=== PATIENT | male | born 1945 | race Caucasian/White ===

== ENCOUNTER 2025-10-05 09:43 | Outpatient (CLI) | payer MEDICARE, SELFPAY ==
--- NOTE | 2025-10-05 09:30 | RT.EKG_ITS ---
APPROVED REPORT Exam: Resting ECG Reason for Exam: afib Patient Location: O HR:152 bpm ECG Measurements Heart Rate 152 AXIS MO [id number] P [id number] QRSd 104 QRS -55 QT 293 T 23 QTc 466 Conclusion Atrial fibrillation with rapid V-rate...A-rate 374 Left axis Low voltage
== END 2025-10-05 09:44 | disposition home or self-care (01) ==
LOC: DI.CM 09:43
PROVIDERS: PCP Nurse Practitioner Family; Visit Provider Nurse Practitioner Family
DX: I48.91 Unspecified atrial fibrillation (principal)
CPT/HCPCS: 93010

== ENCOUNTER 2025-10-05 10:06 | Emergency (ER) | payer MEDICARE, SELFPAY ==
[2025-10-05] VITALS (48 sets, daily range): BP systolic 101–168; BP diastolic 66–116; PULSE 65–155; RESP 11–30; TEMP 36.6; O2SAT 89–97
--- NOTE | 2025-10-05 10:00 | RT.EKG_ITS ---
APPROVED REPORT Exam: Resting ECG Reason for Exam: rapid heart rate Patient Location: E HR:157 bpm ECG Measurements Heart Rate 157 AXIS VT [id number] P [id number] QRSd 82 QRS -55 QT 309 T [id number] QTc 497 Conclusion Atrial fibrillation with rapid V-rate...A-rate 395 Inferior infarct, old...Q >35mS, II III aVF No STEMI
--- NOTE | 2025-10-05 10:14 | W.ED.GENAD ---
Discharge Plan Disposition Patient Disposition: Home Condition: Stable Discharge Details Clinical Impression: Atrial fibrillation with rapid ventricular response Primary Care Provider: Kinjal Tavera ED Provider: Rachel Rae Home Meds and New Rx's Prescriptions: New diltiazem HCl [Cartia XT] 120 mg capsule,extended release 24hr 120 mg PO DAILY 30 Days Qty: 30 3RF Rx Instructions: Take one capsule by mouth daily furosemide [Lasix] 20 mg tablet 20 mg PO DAILY Qty: 30 0RF Rx Instructions: Take one tablet by mouth daily in am Continued trazodone 50 mg tablet 50 mg PO DAILY atorvastatin [Lipitor] 10 mg tablet 10 mg PO DAILY tamsulosin 0.4 mg capsule 0.4 mg PO BID mineral oil Oil 1 applic miscellaneous HS ascorbate calcium (vitamin C) 500 mg tablet 1 g PO DAILY losartan 25 mg tablet 25 mg PO BID omeprazole 20 mg capsule,delayed release(DR/EC) 20 mg PO DAILY betamethasone dipropionate 0.05 % ointment 1 applic topical PRN B-complex with vitamin C Capsule 1 cap PO DAILY magnesium 200 mg tablet 200 mg PO DAILY omega-3 fatty acids 1,250 mg capsule 1,250 mg PO BID cholecalciferol (vitamin D3) 75 mcg (3,000 unit) tablet 75 mcg PO DAILY potassium chloride [K-Tab] 20 mEq tablet extended release 20 meq PO BID Eliquis 5 mg tablet 5 mg PO BID Discharge Instructions Instructions: Atrial Fibrillation (DC) Additional Instructions: Please take the Diltiazem daily as prescribed. Please follow up with Cardiology within the next 2-3 weeks if possible, otherwise get in with your PCP. Follow up with primary care provider in 3-5 days. Return to ED sooner if any worsening or concerns. I did speak with Hailee Abraham with [facility] cardiology she recommended a low-dose diuretic such as Lasix or furosemide which was sent to the pharmacy on file. He will take this once in the morning. It will not cause you to have increased urination. You are placed on a care management list for urgent follow-up with PCP and a cardiology referral was also placed for you. Please call on Tuesday in order to get a close follow-up. Stand Alone Forms: Portal Information Referrals: Bryce Bella [ NON-[facility] STAFF PHYSICIAN, Medicine] - 3 days Referral Note: Close Follow up- ER follow up Call for appt Tuesday Clinical Impression: Atrial fibrillation with rapid ventricular response Asia Peguero MD [ [facility] STAFF PHYSICIAN, Cardiology] - 2 weeks Referral Note: A-fib RVR ER follow up Clinical Impression: Atrial fibrillation with rapid ventricular response Discharge Data Discharge Date/Time-TO BE ENTERED AT DEPARTURE: 10/05/25 14:28 HPI General Mode of arrival: ambulatory. Date/Time Provider Initiated Documentation: 10/05/25 10:10. Limitations to Documentation: no limitations. Information obtained by: patient, RN/MD, RN notes reviewed and old records reviewed. HPI Narrative: 80-year-old male presents to the ER with a chief complaint of shortness of breath worse for the last 3 days and productive cough for the last 3 weeks. He presented to urgent care today and was referred here for further evaluation and treatment. He was found to be in atrial fibrillation with RVR at a rate of 154. He does have a history of atrial fibrillation and a history of an ablation approximately 2 years ago. He is from out of town previously lived in [place]. He does take losartan and apixaban which he states that he did take this morning. He denies any chest pain, nausea vomiting diarrhea or any other associated symptoms. He denies any fever. He does have questionable 1+ pitting edema noted to his lower extremities. Lungs are clear to auscultation. Upon initial presentation he is hypertensive and tachycardic with a rate of 153 blood pressure 161/106. Related Data Home Medications Medication Instructions Recorded Confirmed B-complex with vitamin C 1 cap PO DAILY 10/05/25 10/05/25 apixaban 5 mg tablet (Eliquis) 5 mg PO BID 10/05/25 10/05/25 ascorbate calcium (vitamin C) 500 1 g PO DAILY 10/05/25 10/05/25 mg tablet atorvastatin 10 mg tablet (Lipitor) 10 mg PO DAILY 10/05/25 10/05/25 betamethasone dipropionate 0.05 % 1 applic topical PRN 10/05/25 10/05/25 topical ointment cholecalciferol (vitamin D3) 75 75 mcg PO DAILY 10/05/25 10/05/25 mcg (3,000 unit) tablet diltiazem HCl 120 mg 120 mg PO DAILY Atrial 10/05/25 capsule,extended release 24 hr Fibrillation 30 days #30 caps (Cartia XT) furosemide 20 mg tablet (Lasix) 20 mg PO DAILY Fluid retention #30 10/05/25 tabs losartan 25 mg tablet 25 mg PO BID 10/05/25 10/05/25 magnesium 200 mg tablet 200 mg PO DAILY 10/05/25 10/05/25 mineral oil 1 applic miscellaneous HS 10/05/25 10/05/25 omega-3 fatty acids 1,250 mg 1,250 mg PO BID 10/05/25 10/05/25 capsule omeprazole 20 mg capsule,delayed 20 mg PO DAILY 10/05/25 10/05/25 release potassium chloride 20 mEq 20 meq PO BID 10/05/25 10/05/25 tablet,extended release (K-Tab) tamsulosin 0.4 mg capsule 0.4 mg PO BID 10/05/25 10/05/25 trazodone 50 mg tablet 50 mg PO DAILY 10/05/25 10/05/25 Previous Rx's Medication Instructions Recorded diltiazem HCl 120 mg 120 mg PO DAILY Atrial 10/05/25 capsule,extended release 24 hr Fibrillation 30 days #30 caps (Cartia XT) furosemide 20 mg tablet (Lasix) 20 mg PO DAILY Fluid retention #30 10/05/25 tabs Allergies Allergy/AdvReac Type Severity Reaction Status Date / Time No Known Allergies Allergy Verified 10/05/25 10:16 General Stated Complaint: Arrhythmia KARY: 2 Review of Systems All systems reviewed & are unremarkable except as noted in HPI and below Cardiovascular Cardiovascular: Reports rapid heart rate, Reports dyspnea and Reports orthopnea Respiratory Respiratory: Reports change in phlegm color, Reports chest congestion, Reports cough, Reports excessive phlegm production and Reports dyspnea Gastrointestinal Gastrointestinal: Denies diarrhea, Denies nausea and Denies vomiting Exam Narrative Exam Narrative: Constitutional: Alert and oriented x3. Appears stated age. Normal body habitus. Head: Normocephalic, no trauma. Eyes: Pupils PERRL, Red reflex noted, EOM's intact. Eyelids symmetrical without lesions, discharge, or swelling. ENT: Bilateral TM's WNL, External ear normal to inspection, no mastoid TTP, swelling, or erythema, Nasal turbinates WNL, no nasal discharge. Normal dentition, Posterior pharynx WNL, no exudate. Chest: Irregular rhythm, tachycardic, Normal S1, S2, distal pulses intact. Resp: Lungs clear to auscultation bilaterally, no wheezes, rales, or rhonchi. Abdomen: Soft, non-distended, Normoactive bowel sounds all 4 quads. Musculoskeletal: Normal gait, Moves all 4 extremities without difficulty. Skin: No suspicious rashes or lesions. Capillary refill less than 2 sec. Neurologic: Cranial nerves II-XII intact. Alert and oriented x 3. Motor: No deficits noted. Sensory: Intact bilaterally all 4 extremities. Hematologic/Lymphatic: No ecchymosis, no lymphadenopathy. Course Vital Signs Vital signs: Vital Signs Temperature 36.6 C 10/05/25 10:09 Pulse 149 H 10/05/25 10:09 Respiratory Rate 23 10/05/25 10:09 Blood Pressure 168/105 H 10/05/25 10:09 Pulse Oximetry 96 10/05/25 10:09 Temperature 36.6 C 10/05/25 10:09 Temperature Source Oral 10/05/25 10:09 Pulse 149 H 10/05/25 10:09 Respiratory Rate 23 10/05/25 10:09 Blood Pressure 168/105 H 10/05/25 10:09 Blood Pressure Position Supine 10/05/25 10:09 Pulse Oximetry 96 10/05/25 10:09 Oxygen Delivery Method Room Air 10/05/25 10:09 Oxygen Flow Rate 0 10/05/25 10:09 Medical Decision Making EKG was reviewed by Dr. Allen and myself ER attending, EKG shows atrial fibrillation with RVR with a rate of 157, no old EKG available for review other than the EKG done just prior to arrival. Of note patient states that he was previously on diltiazem which he has been taken off of for unknown reason. Will try 10 mg of diltiazem IV push and reevaluate. Cardiac workup ordered including serial troponins and proBNP. Chest x-ray and Fluvid. 1047: Patient received 10 mg Diltiazem, slow IV push, heart rate is decreased to 122-135, blood pressure 138/102, O2 sat 94%. Awaiting remainder of labs, will consider another 10 mg IV push. 1106: 20 mg diltiazem IV bolus ordered, magnesium patient's magnesium is 1.7, CBC shows no leukocytosis CMP shows glucose 155 alk phos 142 initial troponin within normal limits at 24, proBNP slightly elevated at 1526. Fluids stopped, Pending CXR, 1132: Heart rate 137-153 O2 sat 94% blood pressure 118/90 respirations 22, has not yet received the 20 mg of diltiazem. 1200: After 20mg Diltiazem IVP, HR down to 103 and 98, JUVENAL 127/91 Will attempt PO Diltiazem trial and disposition home. Discussed reasoning behind Diltiazem PO and will consult with Cardiology for follow up referral and disposiotion recommendation, at this time I do believe it tis safe for patient to be discharged on PO Dilatiazem 120mg CR. 1246: [facility] Cardiology called for consult. 1347: Spoke with Hailee Abraham with [facility] cardiology she states if SOB has resolved it is reasonable to DC home with a low dose diuretic, she also recommends close follow up. 20 mg of furosemide also sent to the patient's pharmacy on file. Instructed on use. On discharge patient is hemodynamically stable heart rate 113 blood pressure 118/86, O2 sat 95% on room air, respirations 20. This text was generated using [employer] system, please disregard any oddities of phrase or misspellings. Lab Data Lab results reviewed: Yes I reviewed the patient's lab results. Labs: Laboratory Tests Range/Units 10/05/25 10/05/25 10:18 11:10 WBC (4.4-10.8) 10^3/uL 9.08 RBC (4.36-5.78) 10^6/uL 4.66 Hgb (13.5-17.5) g/dL 15.4 Hct (40.0-50.0) % 46.9 MCV (80-95) fL 101 H MCH (27.0-33.0) pg 33.0 MCHC (32.0-36.0) % 32.8 RDW (11.8-14.1) % 12.9 Plt Count (130-400) 10^3/uL 169 MPV (8.0-11.0) fL 10.9 Immature Gran % % 0.2 Neutrophils % % 65.7 Lymphocytes % % 22.7 Monocytes % % 9.8 Eosinophils % % 1.2 Basophils % % 0.4 Nucleated RBC % (0.0-0.3) % 0.0 Absolute Neutrophils (1.2-6.7) 10^3/uL 5.96 Absolute Lymphocytes (1.2-3.4) 10^3/uL 2.06 Absolute Monocytes (0.1-0.8) 10^3/uL 0.89 H Absolute Eosinophils (0.0-0.7) 10^3/uL 0.11 Absolute Basophils (0.0-0.2) 10^3/uL 0.04 PT (9.1-11.1) sec 12.3 H INR (0.9-1.1) 1.2 H Sodium (136-145) mmol/L 138 Potassium (3.5-5.1) mmol/L 4.5 Chloride (98-107) mmol/L 101 Carbon Dioxide (21.0-32.0) mmol/L 27.3 Anion Gap (3-11) mmol/L 9.7 BUN (7-18) mg/dL 15 Creatinine (0.70-1.30) mg/dL 1.0 Est GFR (CKD-EPI 2020) (mL/min/1.73m2) 76.08 Glucose (74-106) mg/dL 155 H Calcium (8.5-10.1) mg/dL 9.1 Magnesium (1.8-2.4) mg/dL 1.7 L Total Bilirubin (0.2-1.0) mg/dL 0.8 AST (15-37) U/L 16 ALT (16-63) U/L 51 Alkaline Phosphatase (46-116) U/L 142 H Troponin I (<or=76) ng/L 24 23 NT-Pro-B Natriuret Pep (<300) pg/mL 1526 H Total Protein (6.4-8.2) g/dL 7.7 Albumin (3.4-5.0) g/dL 3.5 PFSH All Active Problems (Updated 10/05/25 @ 13:33 by Rachel Rae NP) Atrial fibrillation with rapid ventricular response (Acute) Social History Smoking/Tobacco Use Status: Current every day Tobacco Type: cigarettes Smoking risk assessment performed?: Yes Alcohol Intake: current Alcohol Intake frequency: 0-2 drinks per day Alcohol type: wine Substance use type: does not use
[2025-10-05 10:28] LABS: Abs Immature Grans 0.02 10^3/uL (0.0-0.06); HCT 46.9 % (40.0-50.0); HGB 15.4 g/dL (13.5-17.5); Immature Grans % 0.2 %; MCH 33.0 pg (27.0-33.0); MCHC 32.8 % (32.0-36.0); MCV 101 fL (80-95); MPV 10.9 fL (8.0-11.0); Platelet Count 169 10^3/uL (130-400); RBC 4.66 10^6/uL (4.36-5.78); RDW 12.9 % (11.8-14.1); RDW-SD 48.2 fL; WBC 9.08 10^3/uL (4.4-10.8)
[2025-10-05] MEDS: dilTIAZem 25 MG/5 ML VIAL 10 MG IVP (10:36)
[2025-10-05 10:40] LABS: INR 1.2 (0.9-1.1); Prothrombin Time 12.3 sec (9.1-11.1)
[2025-10-05 10:52] LABS: ALT 51 U/L (16-63); AST 16 U/L (15-37); Albumin 3.5 g/dL (3.4-5.0); Alkaline Phosphatase 142 U/L (46-116); Anion Gap 9.7 mmol/L (3-11); BUN 15 mg/dL (7-18); Bilirubin, Total 0.8 mg/dL (0.2-1.0); CO2 27.3 mmol/L (21.0-32.0); Calcium 9.1 mg/dL (8.5-10.1); Chloride 101 mmol/L (98-107); Glucose 155 mg/dL (74-106); Magnesium 1.7 mg/dL (1.8-2.4); Potassium 4.5 mmol/L (3.5-5.1); Sodium 138 mmol/L (136-145); Total Protein 7.7 g/dL (6.4-8.2); Troponin I 24 ng/L (<or=76)
--- NOTE | 2025-10-05 11:20 | DI.RAD_ITS ---
Exam(s) XR PORTABLE CHEST AP EXAM: XR PORTABLE CHEST AP CLINICAL HISTORY: Chest pain TECHNIQUE: 2D digital imaging was performed of the chest. One image was obtained. An AP view was obtained. COMPARISON: No exams were available for comparison FINDINGS: MEDIASTINUM: Normal. HEART: Normal. PULMONARY VASCULATURE: Normal. LUNGS: There are no focal consolidating infiltrates present. PLEURAL SPACE: No pleural effusion or pneumothorax. BONE:Within normal limits for the patient's age. OTHER FINDINGS:Normal. IMPRESSION: No acute pulmonary findings. DATA REPOSITORY: RADIATION DOSE DELIVERED:
[2025-10-05 11:35] LABS: Troponin I 23 ng/L (<or=76)
[2025-10-05] MEDS: dilTIAZem 25 MG/5 ML VIAL 20 MG IVP (11:53)
[2025-10-05] MEDS: Magnesium Oxide 400 MG TAB PO (11:53)
--- NOTE | 2025-10-05 12:00 | RT.EKG_ITS ---
APPROVED REPORT Exam: Resting ECG Reason for Exam: Repeat, A-agustin Patient Location: E HR:102 bpm ECG Measurements Heart Rate 102 AXIS VT [id number] P [id number] QRSd 92 QRS -54 QT 369 T 85 QTc 480 Conclusion Atrial fibrillation...V-rate 69-136, irreg A-activity Inferior infarct, old...Q >35mS, II III aVF No STEMI
[2025-10-05 12:35] LABS: COVID-19 PCR Negative (Negative); RSV PCR Negative (Negative)
[2025-10-05] MEDS: dilTIAZem CD 120 MG CAPCR PO (12:52)
== END 2025-10-05 14:28 | disposition home or self-care (01) ==
PROVIDERS: Emergency Provider Registered Nurse Emergency; PCP Nurse Practitioner Family
DX: I48.91 Unspecified atrial fibrillation (principal); R06.02 Shortness of breath; R05.9 Cough, unspecified
CPT/HCPCS: 99284; 99285; 36415; 96374; 80053; 87637; 93005; 71045; 83735; 83880; 84484; 85025; 85610; 93010

== ENCOUNTER 2025-10-10 08:23 | Outpatient (CLI) | payer MEDICARE, SELFPAY ==
--- NOTE | 2025-10-10 08:15 | RT.EKG_ITS ---
APPROVED REPORT Exam: Resting ECG Reason for Exam: PAF Patient Location: O HR:142 bpm ECG Measurements Heart Rate 142 AXIS RI [id number] P [id number] QRSd 97 QRS -53 QT 332 T 89 QTc 510 Conclusion Atrial flutter/fibrillation with rapid V-rate...A-rate 395 Left axis Late transition
== END 2025-10-10 08:24 | disposition home or self-care (01) ==
LOC: DI.CARD 08:24
PROVIDERS: PCP Nurse Practitioner Family; Visit Provider Internal Medicine Cardiovascular Disease
DX: I48.92 Unspecified atrial flutter (principal)
CPT/HCPCS: 93010

== ENCOUNTER → 2025-10-10 10:42 | Outpatient (BNVA) | payer MEDICARE, SELFPAY | PROVIDERS: PCP Nurse Practitioner Family; Referring Provider Nurse Practitioner Family; Visit Provider Internal Medicine Cardiovascular Disease | DX: I48.91 Unspecified atrial fibrillation (principal); I48.92 Unspecified atrial flutter; Z79.01 Long term (current) use of anticoagulants | CPT/HCPCS: 99214; 93005 ==

== ENCOUNTER 2025-11-07 09:29 | Outpatient (CLI) | payer MEDICARE, SELFPAY | END 2025-11-07 09:30 | disposition home or self-care (01) | LOC: DI.CARD 09:40 | PROVIDERS: PCP Nurse Practitioner Family; Referring Provider Nurse Practitioner Family; Visit Provider Internal Medicine Cardiovascular Disease | CPT/HCPCS: 93010 ==

== ENCOUNTER → 2025-11-07 09:29 | Outpatient (BNVA) | payer MEDICARE, SELFPAY | PROVIDERS: PCP Nurse Practitioner Family; Referring Provider Nurse Practitioner Family; Visit Provider Internal Medicine Cardiovascular Disease | DX: I48.92 Unspecified atrial flutter (principal) | CPT/HCPCS: 99213 ==